=== PATIENT | male | born 1980 | race Caucasian/White ===

== ENCOUNTER 2020-07-29 09:20 | Emergency (ER) | payer OTHER ==
[~2020-07-29 09:20] MED LIST: FIORICET1 EACH PO
[2020-07-29 10:33] LABS: INR 1.07 (0.9-1.2); PROTHROMBIN TIME 13.2 SECONDS (11.4-13.6)
[2020-07-29 10:33] LABS: BASOPHIL 0.5 % (0-2); EOSINOPHIL 0.3 % (0-5); HCT 42.8 % (42.0-52.0); HGB 14.8 g/dl (13.2-18.0); MCH 31.2 pg (25.0-31.0); MCHC 34.6 g/dL (32.0-36.0); MCV 90.1 fL (78.0-100.0); MONOCYTE 6.5 % (0-12); NEUTROPHIL 75.4 % (41-80); NRBC 0; PLT 237 K/uL (150-400); RBC 4.75 M/uL (4.70-6.00); RDW 11.9 % (11.5-14.0); WBC 7.5 K/uL (4.0-10.5)
[2020-07-29 10:34] LABS: PTT 31.5 SECONDS (22.2-34.7)
[2020-07-29 10:36] LABS: D-DIMER < 0.27 ug/mLFEU (0.00-0.41)
[2020-07-29 10:36] LABS: BILIRUBIN - TOTAL 0.6 mg/dL (0.2-1.0); BUN/CREAT RATIO (CALC) 14.6 RATIO; CREATININE 0.89 mg/dL (0.67-1.17); GLOBULIN (CALCULATION) 3.2 g/dL; POTASSIUM 3.8 mmol/L (3.5-5.1); TOTAL PROTEIN 7.2 g/dL (6.4-8.2)
[2020-07-29 11:13] LABS: BILIRUBIN NEGATIVE (NEGATIVE); BLOOD NEGATIVE Ery/uL (NEGATIVE); CLARITY CLEAR (CLEAR); COLOR YELLOW (YELLOW); GLUCOSE (U) NORMAL (NORMAL); LEUKOCYTES NEGATIVE Leu/uL (NEGATIVE); NITRITE NEGATIVE (NEGATIVE); PROTEIN NEGATIVE (NEGATIVE); UROBILINOGEN 0.2 mg/dL (0.2-1.0)
== END 2020-07-29 12:45 | disposition home or self-care (01) ==
LOC: FER 09:20
PROVIDERS: Emergency Medicine
DX: R07.89 Other chest pain (principal); R06.02 Shortness of breath; R00.2 Palpitations; R53.1 Weakness; R42 Dizziness and giddiness; Z87.19 Personal history of other diseases of the digestive system; Z87.891 Personal history of nicotine dependence
CPT/HCPCS: 36415; 71045; 80053; 81003; 83605; 83690; 83735; 84484; 85025; 85379; 85610; 85730; 93005

== ENCOUNTER 2020-08-08 21:33 | Emergency (ER) | payer OTHER ==
[2020-08-08 22:08] LABS: BASOPHIL 0.6 % (0-2); EOSINOPHIL 1.6 % (0-5); HCT 42.9 % (42.0-52.0); HGB 14.7 g/dl (13.2-18.0); LYMPHOCYTE 40.3 % (15-48); MCH 30.8 pg (25.0-31.0); MCHC 34.3 g/dL (32.0-36.0); MCV 89.7 fL (78.0-100.0); MONOCYTE 8.2 % (0-12); MPV 11.3 fL (6.0-9.5); NRBC 0; PLT 327 K/uL (150-400); RBC 4.78 M/uL (4.70-6.00); RDW 11.8 % (11.5-14.0); WBC 11.3 K/uL (4.0-10.5)
[2020-08-08 22:31] LABS: ALBUMIN 4.2 g/dL (3.4-5.0); BILIRUBIN - TOTAL 0.3 mg/dL (0.2-1.0); BUN/CREAT RATIO (CALC) 18.2 RATIO; C-REACTIVE PROTEIN 0.2 mg/dL (<=0.90); CREATININE 0.88 mg/dL (0.67-1.17); POTASSIUM 3.6 mmol/L (3.5-5.1); TOTAL PROTEIN 7.2 g/dL (6.4-8.2)
[2020-08-08 22:40] LABS: BILIRUBIN NEGATIVE (NEGATIVE); BLOOD NEGATIVE Ery/uL (NEGATIVE); CLARITY CLEAR (CLEAR); COLOR YELLOW (YELLOW); GLUCOSE (U) NORMAL (NORMAL); LEUKOCYTES NEGATIVE Leu/uL (NEGATIVE); NITRITE NEGATIVE (NEGATIVE); PROTEIN NEGATIVE (NEGATIVE); SPECIFIC GRAVITY <=1.005 (1.001-1.030); UROBILINOGEN 0.2 mg/dL (0.2-1.0); pH 6.5 (5.0-9.0)
== END 2020-08-09 02:20 | disposition home or self-care (01) ==
LOC: FER 21:33
PROVIDERS: Emergency Medicine Emergency Medical Services
DX: R25.1 Tremor, unspecified (principal); R10.11 Right upper quadrant pain; R10.31 Right lower quadrant pain; G89.29 Other chronic pain; R00.0 Tachycardia, unspecified; Z87.39 Personal history of other diseases of the musculoskeletal system and connective tissue; R25.8 Other abnormal involuntary movements
CPT/HCPCS: 36415; 71275; 80053; 81003; 82150; 82728; 83605; 83615; 83690; 84145; 84484; 85025; 86140; 87040; 87088; 93005; J7030; Q9967

== ENCOUNTER 2020-12-08 08:48 | Emergency (ER) | payer OTHER | END 2020-12-08 10:09 | disposition home or self-care (01) | LOC: FER 08:48 | DX: S33.5XXA Sprain of ligaments of lumbar spine, initial encounter (principal); M54.41 Lumbago with sciatica, right side; X58.XXXA Exposure to other specified factors, initial encounter | CPT/HCPCS: 72100; 96372; J1885; J3360 ==